=== PATIENT | male | born 1965 | race Caucasian/White ===

== ENCOUNTER 2023-07-08 09:40 | Observation (INO) | payer BC ==
[2023-07-03 10:06] LABS: Specific Gravity 1.017 (1.005-1.030); Urine Bilirubin NEGATIVE (Negative); Urine Blood Negative (Negative); Urine Clarity Clear (Clear); Urine Color Yellow (Yellow); Urine Glucose NEGATIVE (Negative); Urine Ketones NEGATIVE (Negative); Urine Microscopic Reflex YN NO UMIC; Urine Nitrite NEGATIVE (Negative); Urine Protein NEGATIVE (Negative); Urine Urobilinogen Normal (Normal); Urine pH 5.5 (5.0-7.0)
[2023-07-03 10:08] LABS: Absolute Basophils 0.1 K/uL (0-0.5); Absolute Eosinophils 0.2 K/uL (0-0.5); Absolute Lymphocytes (CBC) 2.5 K/uL (0.7-4.9); Absolute Monocytes 0.7 K/uL (0.1-1.3); Absolute Neutrophil 2.1 K/uL (1.8-8.0); Basophils % 1.1 % (0-1.3); Hematocrit 40.8 % (39.6-49.0); Hemoglobin 14.4 g/dL (13.6-17.9); Lymphocytes % 45.5 % (15.3-44.8); MCH 34.9 pg (27.0-35.0); MCHC 35.4 g/dL (32.0-36.0); MCV 98.6 fL (80-100); MPV 8.4 fL (7.6-11.3); Monocytes % 12.6 % (3.3-12.3); Neutrophils % 37.8 % (41.7-73.7); Nucleated Red Blood Cells % 0.2 % (0-0); Platelets 233 thou/uL (152-406); RBC Red Blood Cell Count 4.14 M/uL (4.33-5.43); Red Cell Distribution Width 12.5 % (12.1-15.2)
[2023-07-03 10:12] LABS: PT Prothrombin Time 10.3 SECONDS (9.5-12.5); PTT, Activated Partial Thromb 30.2 SECONDS (24.3-36.9); Protime INR 0.93
[2023-07-03 10:31] LABS: Albumin 3.7 g/dL (3.4-5.0); Albumin/Globulin Ratio 0.9 (1.1-1.8); Anion Gap 6.6 mEq/L (5.0-15.0); Bilirubin Total 0.5 mg/dL (0.2-1.0); Globulin 3.9 g/dL (2.3-3.5); Potassium 4.6 mEq/L (3.5-5.1); Protein, Total 7.6 g/dL (6.4-8.2)
[2023-07-03 10:46] LABS: Differential Total Cells Count 100; Eosinophils 2 % (0-3); Lymphocytes 57 % (15-42); Monocytes 9 % (0-10); Segmented Neutrophils 32 % (40-80)
[2023-07-03 10:47] LABS: Blood Morphology Comment NOT SEEN (NOT SEEN); Platelet Estimate ADEQ
--- NOTE | 2023-07-03 11:04 | RAD REPORT ---
EXAM DESCRIPTION: RAD - Chest Pa And Lat (2 Views) - 07/03/2023 9:55 am CLINICAL HISTORY: pre op for surgery. Hypertension COMPARISON: Thorax W/ Con dated 03/25/2023 TECHNIQUE: PA and lateral views of the chest were obtained. FINDINGS: The lungs are clear. Heart size is normal and central vasculature is within normal limits. No pleural effusion or pneumothorax seen. No acute bony finding noted. IMPRESSION: No acute cardiopulmonary process.
--- NOTE | 2023-07-04 17:26 | EKG ---
Test Date: 2023-07-03 Test Time: 09:38:40 Occupational Therapy Co Director: MARCELO MEASUREMENT RESULTS: Intervals: Rate: 69 NC: 170 QRSD: 108 QT: 404 QTc: 432 [place]: P: 51 NC: 170 QRS: 59 T: 47 INTERPRETIVE STATEMENTS: Normal sinus rhythm Normal ECG No previous ECG available for comparison Electronically Signed On 07-04-23 17:21:09 CDT by Jaylan Ovalles
[2023-07-08] MEDS: Ringers Lactate 1,000 ML IV ONE (10:00)
[2023-07-08] MEDS: Oxycodone HCl/Acetaminophen 5/325 MG TAB ONE (10:25)
[2023-07-08] MEDS: ACETAMINOPHEN 500 MG TAB ONE (10:25)
[2023-07-08] MEDS: GABAPENTIN 100 MG CAP ONE (10:25)
[2023-07-08] MEDS: CELECOXIB 100 MG CAPSULE ONE (10:25)
[2023-07-08] MEDS ORDERED: LIDOCAINE 1% MPF 5 ML VIAL ONE (10:36)
[2023-07-08] MEDS ORDERED: propofoL 200 MG/20 ML VIAL IV ONE (10:36)
[2023-07-08] MEDS ORDERED: FENTANYL CITR 100 MCG/2 ML ONE ×2 (10:37→11:47)
[2023-07-08] MEDS ORDERED: MIDAZOLAM HCL 2 MG/2 ML INJ ONE (10:38)
[2023-07-08] MEDS ORDERED: ROCURONIUM 50 MG/5 ML VIAL IV ONE (10:38)
[2023-07-08] MEDS ORDERED: TRANEXAMIC ACID 1,000 MG/10 ML VIAL IV ONE (10:53)
[2023-07-08] MEDS: CEFAZOLIN SODIUM 2 GM/VIAL ONE (10:58)
[2023-07-08] MEDS ORDERED: KETOROLAC 30 MG/ML INJ ONE (11:36)
[2023-07-08] MEDS ORDERED: dexAMETHasone 4 MG/ML VIAL ONE (11:36)
[2023-07-08] MEDS ORDERED: ONDANSETRON 4 MG/2 ML VIAL ONE (11:36)
[2023-07-08] MEDS ORDERED: HYDROMORPHONE HCL 1 MG/ML INJ ONE (11:51)
[2023-07-08] MEDS ORDERED: EPHEDRINE SULF 50 MG/ML VIAL ONE (12:15)
[2023-07-08] MEDS ORDERED: ROPIVACAINE HCL 20 ML ONE (12:58)
[2023-07-08] MEDS ORDERED: dexAMETHasone 10 MG/ML VIAL ONE (12:59)
[2023-07-08] MEDS ORDERED: EPINEPHRINE 1 MG/ML VIAL ONE (12:59)
--- NOTE | 2023-07-08 13:12 | P.BOP ---
Preoperative diagnosis: right hip arthritis Postoperative diagnosis: same Primary procedure: right total hip arthoplasty Estimated blood loss: 150 ccs Anesthesia: General Complications: None Transferred to: Recovery Room Condition: Good
[2023-07-08] MEDS ORDERED: DOCUSATE NA 100 MG CAP PO PRN (13:13)
[2023-07-08] MEDS ORDERED: ONDANSETRON 4 MG/2 ML VIAL IV PRN (13:13)
[2023-07-08] MEDS: MEPERIDINE HCL 25 MG/ML SYR ONE (14:50)
--- NOTE | 2023-07-08 15:19 | OP ---
Date of Procedure: 07/08/2023 Surgeon: Yonatan Castanon MD Preoperative Diagnosis: Severe right hip arthritis. Postoperative Diagnosis: Severe right hip arthritis. Procedure: Right total hip arthroplasty using the [place] system. Estimated Blood Loss: 150 cc. Complications: There were no complications. Indications For Operation: Mr. Wyatt is a 57-year-old gentleman who has horrible pain with his hip. He has bugt-[id number] changes and has a superior lateral migration of the femoral head with osteophyt e formation. He is in lot of pain. It has been difficult for him to walk or even move around. He d oes have stiffness of his hip and pain with any motion. Risks, benefits, and alternatives of differe nt methods of treating this were discussed with the patient. He says he understands things as crys betts. At this time, we will proceed with total hip arthroplasty. We specifically told him that he do es have a very degenerated and slightly subluxed hip, which could lead to a fairly significant length ening of this leg. He does have some changes on the contralateral side. He says he understands thin gs as presented and wishes to proceed. Description Of Procedure: Patient was taken to the operating room, placed in the supine position. G eneral anesthesia was easily obtained by the Anesthesia staff. Following this, he was rolled left si de down. His right lower extremity was then prepped and draped in usual sterile fashion for the proc edure. After this, a standard posterolateral incision was taken down carefully through skin only. M eticulous hemostasis being maintained using Bovie electrocautery. This led down to the fascia. A sm all stab wound was made in the fascia. Gluteal tendon was palpated and the fascia was then divided t ill near the tip of the greater trochanter when it was curved posterior and the gluteal muscles were split with finger pressure. After this, the sciatic nerve was palpated and protected as the [place]arn[place] was placed. The external rotators and capsule were then taken down carefully as one unit and tagged for later repair. A hip was used to protect the abductors. The hip was encountered and we were abl e to dislocate that with a little effort and it was found to be highly misshapened and slightly short er than standard neck cut was then performed. The head was then presented and attempts were made to size it with a ring gauges. However, this was difficult because of the significant misshapen structu re evident as well as osteophyte formation. However, we did approximate the size. Following this, t he soft tissues within the acetabulum were removed as well as a hypertrophic labrum circumferentially . There was quite a central osteophyte and a first reaming is made to deepen this to the normal floo r acetabulum. This was then sequentially reamed up to a size 59, which appeared to get good bite. H owever, there was some overhang. A size 60 cup was then placed and was found to be provisionally sta ble. However, because of the misshapen nature of the acetabulum, decision was made to probably place screws, but attention was turned to the femur. The box coverer hand was used and the canal finding reamer was used and after this, it was then broached up sequentially, the broach just a tiny bit proud and the x-rays were taken. It appeared that the acetabulum was in fairly good position, did not really w ant to change position of the acetabulum and felt that the stem was appropriate. After this, 2 screw s were placed within the acetabulum without changing its orientation. Another x-ray was taken which demonstrated good placement of the screws and the acetabulum itself was extremely solid. The liner w as then placed and the final stem was placed. It was trialed initially with a -4 ball. It was able to be relocated and it came to full extension. It does appear to be a little tight. However, it was extremely stable with flexion up to 90 degrees, full adduction and internal rotation to at least 60 degrees. Given that the neck cut was slightly shorter than normal and he was very stiff, I think malik t it is best to retain the stem that we have and used the -4 and it is selected. The ball was then p laced. It was then relocated. It was found to be stable in the above areas as well. The wound was copiously irrigated. The external rotators and capsule were then repaired back to the greater trocha nter via bone tunnels and soft tissue. After this, it was again irrigated and the fascia closed in a watertight fashion using heavy Vicryl sutures. It was again irrigated and the skin was closed using Vicryl sutures followed by merry. The patient was then [facility] and taken to the recovery room in good condition. There were no complications. SE/MODL Voice ID: [id number] Report ID: [id number]
--- OUTSIDE RECORDS SUMMARY | 2023-07-08 15:24 | XMS REPORT | Continuity of Care Document ---
Author Name Unknown Address [address] [place] [address] [facility] thconnect Address [address] [place] [address] Care Team Providers Care Guidance Services Coordinator Name Role Phone Sarah Attending Clinician Unavailable Sarah Admitting Clinician Unavailable Payers Payer Name Policy Type Policy Number Effective Date Expirati on Date Source Medications Ordered Medication Name Filled Medication Name Start Date Stop Date Current Medication? Ordering Clinician Indication Dosage Frequency Signature (SIG) Comments Components Source tamsulosin 0.4 mg capsule TAKE ONE (1) CAPSULE(S) BY MOUTH DAILY. tamsulosin 0.4 mg capsule TAKE ONE (1) CAPSULE(S) BY MOUTH DAILY. No tamsulosin 0.4 mg capsule TAKE ONE (1) CAPSULE(S) BY MOUTH DAILY. [facility] albuterol sulfate HFA 90 mcg/actuati on aerosol inhaler INHALE ONE (1) TO TWO (2) PUFF(S) BY MOUTH EVERY 4-6 HOURS NEEDED FOR COUGH, WHEEZE OR SHORTNESS OF BREATH. albuterol sulfate HFA 90 mcg/actuati on aerosol inhaler INHALE ONE (1) TO TWO (2) PUFF(S) BY MOUTH EVERY 4-6 HOURS NEEDED FOR COUGH, WHEEZE OR SHORTNESS OF BREATH. No albuterol sulfate HFA 90 mcg/actuat ion aerosol inhaler INHALE ONE (1) TO TWO (2) PUFF(S) BY MOUTH EVERY 4-6 HOURS NEEDED FOR COUGH, WHEEZE OR SHORTNESS OF BREATH. [facility] Enbrel SureClick 50 mg/mL (1 mL) subcutaneou s pen injector Enbrel SureClick 50 mg/mL (1 mL) subcutaneou s pen injector No Enbrel SureClick 50 mg/mL (1 mL) subcutaneo us pen injector [facility] Serevent Diskus 50 mcg/dose powder for inhalation INHALE ONE (1) PUFF 2 (TWO) TIMES A DAY BY INHALATION ROUTE. Serevent Diskus 50 mcg/dose powder for inhalation INHALE ONE (1) PUFF 2 (TWO) TIMES A DAY BY INHALATION ROUTE. No Serevent Diskus 50 mcg/dose powder for inhalation INHALE ONE (1) PUFF 2 (TWO) TIMES A DAY BY INHALATION ROUTE. [facility] sildenafil 50 mg tablet TAKE ONE (1) TABLET(S) BY MOUTH TWICE A WEEK NEEDED. sildenafil 50 mg tablet TAKE ONE (1) TABLET(S) BY MOUTH TWICE A WEEK NEEDED. No sildenafil 50 mg tablet TAKE ONE (1) TABLET(S) BY MOUTH TWICE A WEEK NEEDED. [facility] tadalafil 5 mg tablet TAKE ONE (1) TABLET(S) BY MOUTH ONCE A DAY. tadalafil 5 mg tablet TAKE ONE (1) TABLET(S) BY MOUTH ONCE A DAY. No tadalafil 5 mg tablet TAKE ONE (1) TABLET(S) BY MOUTH ONCE A DAY. [facility] tamsulosin 0.4 mg capsule TAKE ONE (1) CAPSULE(S) BY MOUTH DAILY. tamsulosin 0.4 mg capsule TAKE ONE (1) CAPSULE(S) BY MOUTH DAILY. No tamsulosin 0.4 mg capsule TAKE ONE (1) CAPSULE(S) BY MOUTH DAILY. [facility] albuterol sulfate HFA 90 mcg/actuati on aerosol inhaler INHALE ONE (1) TO TWO (2) PUFF(S) BY MOUTH EVERY 4-6 HOURS NEEDED FOR COUGH, WHEEZE OR SHORTNESS OF BREATH. albuterol sulfate HFA 90 mcg/actuati on aerosol inhaler INHALE ONE (1) TO TWO (2) PUFF(S) BY MOUTH EVERY 4-6 HOURS NEEDED FOR COUGH, WHEEZE OR SHORTNESS OF BREATH. No albuterol sulfate HFA 90 mcg/actuat ion aerosol inhaler INHALE ONE (1) TO TWO (2) PUFF(S) BY MOUTH EVERY 4-6 HOURS NEEDED FOR COUGH, WHEEZE OR SHORTNESS OF BREATH. [facility] amoxicillin 875 mg-potassiu m clavulanate 125 mg tablet TAKE 1 TABLET BY MOUTH IN THE MORNING AND 1 TABLET IN THE EVENING. DO ALL THIS FOR 7 DAYS. amoxicillin 875 mg-potassiu m clavulanate 125 mg tablet TAKE 1 TABLET BY MOUTH IN THE MORNING AND 1 TABLET IN THE EVENING. DO ALL THIS FOR 7 DAYS. No amoxicilli n 875 mg-potassi um clavulanat e 125 mg tablet TAKE 1 TABLET BY MOUTH IN THE MORNING AND 1 TABLET IN THE EVENING. DO ALL THIS FOR 7 DAYS. [facility] Enbrel SureClick 50 mg/mL (1 mL) subcutaneou s pen injector Enbrel SureClick 50 mg/mL (1 mL) subcutaneou s pen injector No Enbrel SureClick 50 mg/mL (1 mL) subcutaneo us pen injector [facility] Serevent Diskus 50 mcg/dose powder for inhalation INHALE ONE (1) PUFF 2 (TWO) TIMES A DAY BY INHALATION ROUTE. Serevent Diskus 50 mcg/dose powder for inhalation INHALE ONE (1) PUFF 2 (TWO) TIMES A DAY BY INHALATION ROUTE. No Serevent Diskus 50 mcg/dose powder for inhalation INHALE ONE (1) PUFF 2 (TWO) TIMES A DAY BY INHALATION ROUTE. [facility] sildenafil 50 mg tablet TAKE ONE (1) TABLET(S) BY MOUTH TWICE A WEEK NEEDED. sildenafil 50 mg tablet TAKE ONE (1) TABLET(S) BY MOUTH TWICE A WEEK NEEDED. No sildenafil 50 mg tablet TAKE ONE (1) TABLET(S) BY MOUTH TWICE A WEEK NEEDED. [facility] tadalafil 5 mg tablet TAKE ONE (1) TABLET(S) BY MOUTH ONCE A DAY. tadalafil 5 mg tablet TAKE ONE (1) TABLET(S) BY MOUTH ONCE A DAY. No tadalafil 5 mg tablet TAKE ONE (1) TABLET(S) BY MOUTH ONCE A DAY. [facility] tamsulosin 0.4 mg capsule TAKE ONE (1) CAPSULE(S) BY MOUTH DAILY. tamsulosin 0.4 mg capsule TAKE ONE (1) CAPSULE(S) BY MOUTH DAILY. No tamsulosin 0.4 mg capsule TAKE ONE (1) CAPSULE(S) BY MOUTH DAILY. [facility] albuterol sulfate HFA 90 mcg/actuati on aerosol inhaler INHALE ONE (1) TO TWO (2) PUFF(S) BY MOUTH EVERY 4-6 HOURS NEEDED FOR COUGH, WHEEZE OR SHORTNESS OF BREATH. albuterol sulfate HFA 90 mcg/actuati on aerosol inhaler INHALE ONE (1) TO TWO (2) PUFF(S) BY MOUTH EVERY 4-6 HOURS NEEDED FOR COUGH, WHEEZE OR SHORTNESS OF BREATH. No albuterol sulfate HFA 90 mcg/actuat ion aerosol inhaler INHALE ONE (1) TO TWO (2) PUFF(S) BY MOUTH EVERY 4-6 HOURS NEEDED FOR COUGH, WHEEZE OR SHORTNESS OF BREATH. [facility] albuterol sulfate HFA 90 mcg/actuati on aerosol inhaler INHALE ONE (1) TO TWO (2) PUFF(S) BY MOUTH EVERY 4-6 HOURS NEEDED FOR COUGH, WHEEZE OR SHORTNESS OF BREATH. albuterol sulfate HFA 90 mcg/actuati on aerosol inhaler INHALE ONE (1) TO TWO (2) PUFF(S) BY MOUTH EVERY 4-6 HOURS NEEDED FOR COUGH, WHEEZE OR SHORTNESS OF BREATH. No albuterol sulfate HFA 90 mcg/actuat ion aerosol inhaler INHALE ONE (1) TO TWO (2) PUFF(S) BY MOUTH EVERY 4-6 HOURS NEEDED FOR COUGH, WHEEZE OR SHORTNESS OF BREATH. [facility] amoxicillin 875 mg-potassiu m clavulanate 125 mg tablet TAKE 1 TABLET BY MOUTH IN THE MORNING AND 1 TABLET IN THE EVENING. DO ALL THIS FOR 7 DAYS. amoxicillin 875 mg-potassiu m clavulanate 125 mg tablet TAKE 1 TABLET BY MOUTH IN THE MORNING AND 1 TABLET IN THE EVENING. DO ALL THIS FOR 7 DAYS. No amoxicilli n 875 mg-potassi um clavulanat e 125 mg tablet TAKE 1 TABLET BY MOUTH IN THE MORNING AND 1 TABLET IN THE EVENING. DO ALL THIS FOR 7 DAYS. [facility] Enbrel SureClick 50 mg/mL (1 mL) subcutaneou s pen injector Enbrel SureClick 50 mg/mL (1 mL) subcutaneou s pen injector No Enbrel SureClick 50 mg/mL (1 mL) subcutaneo us pen injector [facility] Serevent Diskus 50 mcg/dose powder for inhalation INHALE ONE (1) PUFF 2 (TWO) TIMES A DAY BY INHALATION ROUTE. Serevent Diskus 50 mcg/dose powder for inhalation INHALE ONE (1) PUFF 2 (TWO) TIMES A DAY BY INHALATION ROUTE. No Serevent Diskus 50 mcg/dose powder for inhalation INHALE ONE (1) PUFF 2 (TWO) TIMES A DAY BY INHALATION ROUTE. [facility] sildenafil 50 mg tablet TAKE ONE (1) TABLET(S) BY MOUTH TWICE A WEEK NEEDED. sildenafil 50 mg tablet TAKE ONE (1) TABLET(S) BY MOUTH TWICE A WEEK NEEDED. No sildenafil 50 mg tablet TAKE ONE (1) TABLET(S) BY MOUTH TWICE A WEEK NEEDED. [facility] tadalafil 5 mg tablet TAKE ONE (1) TABLET(S) BY MOUTH ONCE A DAY. tadalafil 5 mg tablet TAKE ONE (1) TABLET(S) BY MOUTH ONCE A DAY. No tadalafil 5 mg tablet TAKE ONE (1) TABLET(S) BY MOUTH ONCE A DAY. [facility] Enbrel SureClick 50 mg/mL (1 mL) subcutaneou s pen injector Enbrel SureClick 50 mg/mL (1 mL) subcutaneou s pen injector No Enbrel SureClick 50 mg/mL (1 mL) subcutaneo us pen injector [facility] tamsulosin 0.4 mg capsule TAKE ONE (1) CAPSULE(S) BY MOUTH DAILY. tamsulosin 0.4 mg capsule TAKE ONE (1) CAPSULE(S) BY MOUTH DAILY. No tamsulosin 0.4 mg capsule TAKE ONE (1) CAPSULE(S) BY MOUTH DAILY. [facility] Serevent Diskus 50 mcg/dose powder for inhalation INHALE ONE (1) PUFF(S) BY MOUTH TWICE DAILY. Serevent Diskus 50 mcg/dose powder for inhalation INHALE ONE (1) PUFF(S) BY MOUTH TWICE DAILY. No Serevent Diskus 50 mcg/dose powder for inhalation INHALE ONE (1) PUFF(S) BY MOUTH TWICE DAILY. [facility] sildenafil 50 mg tablet TAKE ONE (1) TABLET(S) BY MOUTH TWICE A WEEK NEEDED. sildenafil 50 mg tablet TAKE ONE (1) TABLET(S) BY MOUTH TWICE A WEEK NEEDED. No sildenafil 50 mg tablet TAKE ONE (1) TABLET(S) BY MOUTH TWICE A WEEK NEEDED. [facility] Encounters Start Date/Time End Date/Time Encounter Type Admission Type Attending [facility] Care Department Encounter ID Source 2022-11-15 00:00:00 2022-11-15 00:00:00 Outpatient [facility] [id number] [facility] 2022-11-14 00:00:00 2022-11-14 00:00:00 Anabel Johnson, CURRICULUM AND ASSESSMENT DIRECTOR: [place] [address] , Ph. [facility] [id number] [facility] 2022-11-07 00:00:00 2022-11-07 00:00:00 Outpatient [facility] [id number] [facility] 2022-10-21 00:00:00 2022-10-21 00:00:00 Outpatient Nguyen_o [facility] [id number] [facility] 2022-10-21 00:00:2022-10-21 00:00:00 Outpatient Nguyen_Tho [facility] [id number] [facility] 2022-10-21 00:00:00 2022-10-21 00:00:00 Bina Edwards MD: [address] [place] [address] , Ph. [facility] [id number] [facility] 2022-09-27 00:00:00 2022-09-27 00:00:00 Outpatient Nguyen_Tho [facility] [id number] [facility] 2022-09-20 00:00:00 2022-09-20 00:00:00 Outpatient Nguyen_Tho [facility] [id number] [facility] 2022-09-19 00:00:00 2022-09-19 00:00:00 Outpatient Nguyen_Tho [facility] [id number] [facility] 2022-09-19 00:00:00 2022-09-19 00:00:00 Arnol Jewell: [address] [place] [address] , [facility]. [facility] [id number] [facility] 2022-08-20 00:00:00 2022-08-20 00:00:00 Outpatient Nguyen_Tho [facility] [id number] [facility] 2022-08-20 00:00:00 2022-08-20 00:00:00 HO Chery: [address] [place] [address] , Ph. [facility] [id number] [facility] 2022-08-19 00:00:00 2022-08-19 00:00:00 Outpatient Sarah [facility] [id number] [facility]
[2023-07-08 15:56] VITALS: BMI 35.9
[2023-07-08] MEDS: CEFAZOLIN 1 GM in NA CHLORIDE 0.9% 50 ML IVPB SCH (16:29)
--- NOTE | 2023-07-08 17:05 | P.CNS ---
Date of Consult: 07/08/23 Reason for Consult: medical management Chief Complaint: Right total hip arthroplasty History of Present Illness: Hua Wyatt is a 57-year-old male with past medical history of COPD, LENI, smoker, arthritis, lung cancer, he was admitted to the hospital for right total hip arthroplasty with Dr. Castanon. Dr. Castanon has consulted hospitalist service for medical management. Allergies morphine Adverse Reaction (Verified 07/08/23 11:42) Hives Home Medications: Albuterol Inhaler [Ventolin Inhaler*] 2 puff IH Q6H PRN 07/03/23 Cyclobenzaprine HCl [Flexeril] 5 mg PO DAILY 07/03/23 Etanercept [Enbrel] 50 mg SQ Q7D 07/03/23 Salmeterol Xinafoate [Serevent Diskus] 50 mcg IH BID 07/03/23 Tadalafil [Cialis] 5 mg PO DAILY 07/03/23 Tamsulosin [Flomax*] 0.4 mg PO BEDTIME 07/03/23 Docusate [Colace Cap*] 200 mg PO DAILY PRN #30 cap 07/09/23 - Past Medical/Surgical History Diabetic: No -: LENI, -: Smoker -: Arthritis -: Lung CA -: mild COPD -: tonsils -: 2 pylonidal cyst -: l groin hernia -: vasectomy -: r rotator cuff 20 yrs ago -: toes straightened out -: right knee arthroscopy 20 yrs ago -: removal top r lobe lung cancer 4.5yrs ago - Family History Mother Medical History: Heart disease, Stroke, Cancer - Social History Alcohol use: Yes CD- Drugs: No Caffeine use: Yes Place of Residence: Home Review of Systems Musculoskeletal: Leg Pain (Right hip pain) Physical Examination Temp Pulse Resp BP Pulse Ox 97.3 F 80 18 127/69 07/08/23 15:10 07/08/23 15:10 07/08/23 15:10 07/08/23 15:10 General: Alert, In no apparent distress, Oriented x3 HEENT: Atraumatic, Normocephalic, PERRLA Neck: Supple, 2+ carotid pulse no bruit Respiratory: Clear to auscultation bilaterally, Normal air movement Cardiovascular: Normal pulses, Regular rate/rhythm, Normal S1 S2 Capillary refill: <2 Seconds Gastrointestinal: Normal bowel sounds, Soft and benign Musculoskeletal: Other (dressing to right hip (C/D/I)) Integumentary: No rashes Neurological: Normal speech, Normal tone Conclusions/Impression: Assessment and plan Right total hip arthroplasty History of arthritis Per orthopedics Pain management Perioperative antibiotics PT order History of COPD/LENI Smoking abuse History of lung cancer Continue home medications when available Offer nicotine patch smoking cessation DVT PPx per orthopedics Full code LOS 2 to 3 days-PT recommendations Time Spent Managing Pts care (In Minutes): 50
[2023-07-08] MEDS ORDERED: HYDRALAZINE HCL 20 MG/ML VIAL IV PRN (17:12)
[2023-07-08] MEDS ORDERED: IPRATROPIUM BROM 0.5MG/2.5ML NEB PRN (17:13)
[2023-07-08 17:51] LABS: Hemoglobin 14.4 g/dL (13.6-17.9)
[2023-07-08] MEDS ORDERED: ALBUTEROL 2.5 MG/3 ML NEB SOL NEB PRN (18:44)
[2023-07-08] MEDS: HYDROCODONE/APAP 7.5/325 MG TAB PO PRN (20:16)
[2023-07-08] MEDS: TAMSULOSIN 0.4 MG SR CAP PO SCH (20:17)
[2023-07-08] MEDS: SALMETEROL XINAFOATE 50 MCG IH SCH (21:00)
[2023-07-08 21:54] LABS: Hematocrit 40.3 % (39.6-49.0)
[2023-07-09 07:02] LABS: Hematocrit 38.1 % (39.6-49.0); Hemoglobin 13.5 g/dL (13.6-17.9)
[2023-07-09 07:28] LABS: Anion Gap 7.7 mEq/L (5.0-15.0); Magnesium 2.3 mg/dL (1.6-2.4); Phosphorus 2.7 mg/dL (2.5-4.9); Potassium 4.7 mEq/L (3.5-5.1)
[2023-07-09 07:35] LABS: Absolute Lymphocytes (CBC) 1.6 K/uL (0.7-4.9); Absolute Monocytes 0.9 K/uL (0.1-1.3); Absolute Neutrophil 11.1 K/uL (1.8-8.0); Basophils % 0.1 % (0-1.3); Lymphocytes % 11.7 % (15.3-44.8); MCH 34.8 pg (27.0-35.0); MCHC 35.1 g/dL (32.0-36.0); MPV 8.2 fL (7.6-11.3); Monocytes % 6.3 % (3.3-12.3); Neutrophils % 81.9 % (41.7-73.7); Platelets 254 thou/uL (152-406); RBC Red Blood Cell Count 3.88 M/uL (4.33-5.43); Red Cell Distribution Width 12.3 % (12.1-15.2)
[2023-07-09] MEDS: CYCLOBENZAPRINE 10 MG TAB PO SCH (07:58)
[2023-07-09] MEDS: ENOXAPARIN 40 MG/0.4 ML SQ SCH (07:59)
[2023-07-09 09:45] VITALS: O2SAT 97
--- NOTE | 2023-07-09 11:38 | P.DS ---
Admission Date: 07/08/23 Discharge Date: 07/09/23 Disposition: DC HOME/HOME HEALTH CARE Discharge Condition: FAIR Reason for Admission: Right total hip arthroplasty Brief History of Present Illness: Diagnosis Right total hip arthroplasty History of arthritis History of COPD/LENI Smoking abuse History of lung cancer 07/08/23 Hua Wyatt is a 57-year-old male with past medical history of COPD, LENI, smoker, arthritis, lung cancer, he was admitted to the hospital for right total hip arthroplasty with Dr. Castanon. Dr. Castanon has consulted hospitalist service for medical management. Vital Signs/Physical Exam: Temp Pulse Resp BP Pulse Ox 99.6 F 80 18 135/69 96 07/09/23 04:00 07/09/23 04:00 07/09/23 07:58 07/09/23 04:00 07/09/23 07:58 Laboratory Data at Discharge: WBC 13.60 thou/uL (4.3-10.9) H 07/09/23 06:45 WBC Cancelled 07/09/23 06:45 Hgb 13.5 g/dL (13.6-17.9) L 07/09/23 06:45 Hgb Cancelled 07/09/23 06:45 Hct 38.1 % (39.6-49.0) L 07/09/23 06:45 Hct Cancelled 07/09/23 06:45 Plt Count 254 thou/uL (152-406) 07/09/23 06:45 Plt Count Cancelled 07/09/23 06:45 PT 10.3 SECONDS (9.5-12.5) 07/03/23 09:35 INR 0.93 07/03/23 09:35 APTT 30.2 SECONDS (24.3-36.9) 07/03/23 09:35 Sodium 138 mEq/L (136-145) 07/09/23 06:45 Potassium 4.7 mEq/L (3.5-5.1) 07/09/23 06:45 BUN 11 mg/dL (7-18) 07/09/23 06:45 Creatinine 0.81 mg/dL (0.70-1.30) 07/09/23 06:45 Glucose 140 mg/dL (74-106) H 07/09/23 06:45 Phosphorus 2.7 mg/dL (2.5-4.9) 07/09/23 06:45 Magnesium 2.3 mg/dL (1.6-2.4) 07/09/23 06:45 Total Bilirubin 0.5 mg/dL (0.2-1.0) 07/03/23 09:35 AST 18 U/L (15-37) 07/03/23 09:35 ALT 40 U/L (16-61) 07/03/23 09:35 Alkaline Phosphatase 81 U/L (45-117) 07/03/23 09:35 Home Medications: Albuterol Inhaler [Ventolin Inhaler*] 2 puff IH Q6H PRN 07/03/23 Cyclobenzaprine HCl [Flexeril] 5 mg PO DAILY 07/03/23 Etanercept [Enbrel] 50 mg SQ Q7D 07/03/23 Salmeterol Xinafoate [Serevent Diskus] 50 mcg IH BID 07/03/23 Tadalafil [Cialis] 5 mg PO DAILY 07/03/23 Tamsulosin [Flomax*] 0.4 mg PO BEDTIME 07/03/23 Docusate [Colace Cap*] 200 mg PO DAILY PRN #30 cap 07/09/23 New Medications: Docusate [Colace Cap*] 200 mg PO DAILY PRN #30 cap PRN Reason: Constipation Physician Discharge Instructions: Hua Wyatt was admitted to the hospital for a right total hip arthroplasty with Dr. Castanon. Pain medications and anticoagulation has been sent to your pharmacy via Dr. Castanon. Follow-up with Dr. Castanon in 2 weeks or sooner if there is a problem. [facility] 1. Please call and schedule a follow-up appointment with your PCP in 3-5 days - Please follow-up with your PCP for medication refills/adjustments 2. Please call and schedule a follow-up appointment with Dr. Castanon in 2 weeks or sooner if there is a problem 3. Continue regular diet 4. Fall precautions while working with physical therapy 5. Return to ED if needed [facility] [place] P:[phone] F:[phone] [place] P:[phone] F:[phone] Diet: Regular Activity: Fall precautions Followup: Yonatan Castanon MD [Primary Care Provider] - 1-2 Weeks (follow up in 2 weeks)
--- NOTE | 2023-07-09 12:32 | RAD REPORT ---
EXAM DESCRIPTION: - [id number] CLINICAL HISTORY: RT TOTAL HIP RPLCMNT COMPARISON: No comparisons TECHNIQUE: Single AP view of the pelvis. FINDINGS: Acetabular component of right hip arthroplasty, and surgical instruments present along ski n defect laterally. Proximal retraction of the shaft of the femur. IMPRESSION: Expected intraoperative appearance during right total hip arthroplasty as above.
[2023-07-09 13:56] VITALS: BP 142/75; TEMP 99.5
== END 2023-07-09 13:43 | disposition home health service (06) ==
LOC: OR 09:40 → 4TH 13:13
PROVIDERS: ADMIT Orthopaedic Surgery; ATTEND Orthopaedic Surgery
PROC: 0SR90JA Replacement of Right Hip Joint with Synthetic Substitute, Uncemented, Open Approach (ICD-10-PCS; principal; 2023-07-08 12:00)
DX: M16.11 Unilateral primary osteoarthritis, right hip (principal); J44.9 Chronic obstructive pulmonary disease, unspecified; G47.33 Obstructive sleep apnea (adult) (pediatric); F17.210 Nicotine dependence, cigarettes, uncomplicated; Z85.118 Personal history of other malignant neoplasm of bronchus and lung; Z88.5 Allergy status to narcotic agent
CPT/HCPCS: 93005; 85025 ×2; 80048; 36415 ×2; 83735; 84100; 85610; 88304; 88311; 85730; 85018 ×2; 85014 ×2; 81003; 80053; 71046; 73501; 97110; 97116; 97161; 97530; 27130; C1776; J2704; J1100 ×2; J2001; J1650; J2250; J3010 ×2; J2175; J0171; J1170; J2405; J7120; J0690 ×3; 88305; G0378; G0379